=== PATIENT | male | born 1990 | race Two or more races ===

== ENCOUNTER 2016-07-31 23:27 | Emergency (ER) | payer OTHER ==
[2016-08-01] MEDS ORDERED: PANTOPRAZOLE SODIUM 40 MG VIAL IV ONE (00:18)
[2016-08-01] MEDS ORDERED: KETOROLAC TROMETHAMINE 30 MG/ML 1 ML VIAL ONE (00:18)
[2016-08-01 00:46] LABS: ABSOLUTE NEUTROPHIL COUNT 4.6 K/mm3 (1.8-7.7); BASO # 0.1 K/mm3 (0.0-0.2); BASO % 1.3 % (0.2-1.0); EOS # 0.4 (0.0-0.5); EOS % 4.1 % (0.9-2.9); HEMATOCRIT 41.4 % (32.0-52.0); HEMOGLOBIN 14.6 gm/l (14.0-18.0); IMM NEUT% 0.2 % (0-1); LYMPH # 3.8 (1.0-4.8); LYMPH % 37.4 % (15-45); MEAN CORPUSCULAR HEMOGLOBIN 29.6 pg (27.0-31.0); MEAN CORPUSCULAR HGB CONC 35.3 g/dl (33.0-37.0); MEAN PLATELET VOLUME 9.7 fl (7.4-10.4); MONO # 1.2 (0.0-0.8); MONO % 11.9 % (4-12); NEUT % 45.1 % (43-75); PLATELET COUNT 283 K/mm3 (130-400); RED CELL DISTRIBUTION WIDTH 11.5 % (11.5-14.5)
[2016-08-01 00:59] LABS: ALB/GLOB RATIO 1.4 (>1.0); ALBUMIN 4.5 gm/dL (3.5-5.7); CALCIUM 10.9 mg/dL (8.6-10.3)
--- NOTE | 2016-08-01 07:31 | RAD ---
Exam: Two-view chest COMPARISON: None INDICATION: Left chest and rib cage pain, tender to palpation. Shortness of breath. FINDINGS: PA and lateral views of the chest were obtained. Lung volumes are somewhat low. Cardiac silhouette is within normal limits. There is no focal airspace disease or pleural effusion. Bones of the chest wall within normal limits. IMPRESSION: No acute pulmonary process.
== END 2016-08-01 02:14 | disposition home or self-care (01) ==
LOC: ED 23:27
DX: R07.81 Pleurodynia (principal)
CPT/HCPCS: 83690; 85379; 85025; 80053; 71020; 96375; 99283 ×2; 96374; C9113; J1885